=== PATIENT | female | born 1950 | race Caucasian/White ===

== ENCOUNTER 2016-10-27 07:19 | Day surgery (SDC) | payer MEDICARE, OTHER ==
[~2016-10-27] VITALS: Ht 160 cm; Wt 104.3 kg
[~2016-10-27 07:19] MED LIST: ASPI-535 PO; ATEN50TA PO; ATOR10TA23 PO; BENA10TA PO; DEXL60CA2 PO; DICY10CA60 PO; HYDR12.53 PO; LORA-401 PO; SERT20OR PO; TRAZ50TA18 PO
[2016-10-27 08:09] VITALS: Ht 160 cm; Wt 104.3 kg
[2016-10-27] MEDS ORDERED: HYDR-2086 PO (08:24)
[2016-10-27 08:33] VITALS: BP 179/89; PULSE 75; RESP 20
[2016-10-27] MEDS ORDERED: PROPOFOL 40 ML ONE (08:37)
[2016-10-27] MEDS ORDERED: LIDOCAINE 2% (SDV) 5 ML INJ ONE (08:37)
[2016-10-27 09:35] VITALS: BP 148/66; PULSE 64; RESP 20
--- NOTE | 2016-10-27 13:54 | GILP ---
DATE OF PROCEDURE: 10/27/2016 NAME OF PROCEDURES: 1. Esophagogastroduodenoscopy and biopsy. 2. Colonoscopy and biopsy. SURGEON: Stephen Lisa MD PREOPERATIVE DIAGNOSES: 1. Abdominal pain. 2. Chronic diarrhea. POSTOPERATIVE DIAGNOSES: 1. Small hiatal hernia. 2. Gastroesophageal reflux disease. 3. Gastritis with erosions. 4. Gastric mucosal biopsies were taken for Helicobacter pylori test. 5. Colonoscopy all the way to the cecum. 6. Internal hemorrhoids. 7. Random biopsies were taken to rule out microscopic colitis. INDICATION FOR THE PROCEDURE: Ms. Tsering Heurta is a 66-year-old female patient who had upper abd ominal pain, not responding to therapy. She also had chronic diarrhea. The patient was scheduled f or endoscopy and colonoscopy for further evaluation. The procedures and possible complications are well explained to the patient, she understood and cons ented to the procedure. DESCRIPTION OF PROCEDURE: Under the influence of anesthesia, the gastroscope was carefully introduc ed into the esophagus and under direct vision, it was advanced to the stomach and through the pyloru s into the duodenal bulb and descending duodenum. FINDINGS: ESOPHAGUS: The patient had a small hiatal hernia and gastroesophageal reflux disease. STOMACH: She had gastritis with erosions. Gastric mucosal biopsies were taken for H. pylori test. DUODENUM: Normal. The colonoscope was carefully introduced in the rectum and under direct vision, it was advanced all the way to the cecum. FINDINGS: The patient had internal hemorrhoids. Random biopsies were taken to rule out microscopic colitis. She tolerated the procedures very well and there was no complication from the procedures. At the en d of the procedures, she was awake with stable vital signs and she was discharged home to the care o f her family. IMPRESSION: Please see postoperative diagnosis. PLAN: 1. Continue Dexilant. 2. Add Zantac 300 mg p.o. at bedtime. 3. Continue Bentyl 10 mg p.o. t.i.d. 4. Await histopathology reports. 5. Next screening colonoscopy in 10 years. Dictated By: STEPHEN URBINA/COLLETTE Conf#: [id number] DID#: [id number] CC: STEPHEN LISA MD;*EndCC*
== END 2016-10-27 16:54 | disposition home or self-care (01) ==
LOC: GIL 07:19
PROVIDERS: ATTEND Internal Medicine Gastroenterology
DX: K21.9 Gastro-esophageal reflux disease without esophagitis (principal); K44.9 Diaphragmatic hernia without obstruction or gangrene; K29.60 Other gastritis without bleeding; K64.8 Other hemorrhoids; I10 Essential (primary) hypertension; E66.01 Morbid (severe) obesity due to excess calories; Z68.41 Body mass index [BMI] 40.0-44.9, adult
CPT/HCPCS: 87081; 88305